=== PATIENT | male | born 1955 | race American Indian/Alaskan Native ===

== ENCOUNTER 2020-09-19 14:55 | Inpatient (IN) | payer SELFPAY ==
--- NOTE | 2020-09-19 16:20 | XRay Report ---
CHEST 2 VIEWS INDICATION: shortness of breath, cough. COMPARISON: None FINDINGS: Support devices: None. Heart: Within normal limits. Lungs: Diffuse coarse bronchovascular markings are present. Pleura: No significant pleural effusion. No pneumothorax. Additional findings: None. IMPRESSION: 1. Diffuse pulmonary process, inflammatory process should be considered Signer Name: Edgardo Schultz MD Signed: 09/19/2020 4:15 PM Workstation Name: [id number]
[2020-09-19 16:59] LABS: Basophils % (Auto) 0.6 % (0.0-1.8); Eosinophils % (Auto) 0.6 % (0.0-4.3); Hematocrit 42.5 % (35.5-45.6); Hemoglobin 14.7 gm/dl (11.8-15.2); Lymphocytes # (Auto) 1.5 K/mm3 (1.2-5.4); Lymphocytes % (Auto) 22.4 % (13.4-35.0); Mean Corpuscular HGB Conc 35 % (32-34); Mean Corpuscular Volume 88 fl (84-94); Monocytes # (Auto) 0.5 K/mm3 (0.0-0.8); Monocytes % (Auto) 7.9 % (0.0-7.3); Platelet Count 559 K/mm3 (140-440); Red Blood Count 4.85 M/mm3 (3.65-5.03); Red Cell Distribution Width 13.8 % (13.2-15.2)
[2020-09-19 17:22] LABS: Alanine Aminotransferase 41 units/L (7-56); Albumin 3.6 g/dL (3.9-5); BUN/Creatinine Ratio 14; Blood Urea Nitrogen 14 mg/dL (9-20); Calcium 9.5 mg/dL (8.4-10.2); Hemolysis Index 4
[2020-09-19] MEDS ORDERED: IPRATROPIUM/ALBUTEROL SULFATE 3 ML AMPUL.NEB IH ONE (22:05)
[2020-09-19] MEDS ORDERED: predniSONE 20 MG TAB PO ONE (22:05)
[2020-09-19] MEDS ORDERED: levoFLOXacin 750 MG TAB PO ONE (22:05)
--- NOTE | 2020-09-19 22:28 | Emergency Department Report ---
- General Chief Complaint: Upper Respiratory Infection Stated Complaint: HEADACHE Source: patient Mode of arrival: Ambulatory Limitations: No Limitations - History of Present Illness Initial Comments: Patient is a 64-year-old male with no past medical history presents to the ED with complaint of acute onset persistent nasal and sinus congestion, frontal sinus pressure, headache, diffuse body aches and pains, persistent dry cough with wheezing and shortness of breath for the last 4 days. Patient states that he has been taking wmnj-xyq-dvevpsj medications with no relief. Patient states that his symptoms got worse in the last 2 days, with fever and chills and therefore he decided to come to the ED for further evaluation. Patient denies dizziness, syncope, chest pain, abdominal pain, fever, chills, nausea and vomiting, diarrhea, sore throat, back pain, dysuria, urinary frequency and urg ency and testicular pain. MD Complaint: cough, sore throat, rhinorrhea, nasal congestion, sinus pain -: Sudden, days(s) (3) Severity: severe Severity scale (0 -10): 4 Quality: sharp, aching Consistency: constant Improves With: nothing Worsens With: nothing Associated Symptoms: denies other symptoms, fever, chills, myalgias, headache, rhinorrhea, nasal congestion, cough. denies: chest pain, shortness of breath, abdominal pain, nausea, vomiting, diarrhea, dysuria, rash, confusion, right sweats, weight loss, epistaxis, hoarseness, ear pain, other Treatments Prior to Arrival: Acetaminophen - Related Data Previous Rx's Medication Instructions Recorded Last Taken Type Albuterol Sulfate [Proventil Hfa] 1 - 2 puff IH Q4H PRN #1 hfa.aer.ad 09/19/20 Unknown Rx Benzonatate [Tessalon Perles] 100 mg PO Q8HR #30 capsule 09/19/20 Unknown Rx Ibuprofen [Motrin] 600 mg PO Q8H PRN #24 tablet 09/19/20 Unknown Rx Prednisone [predniSONE 10 mg 10 mg PO .TAPER #21 tab.ds.pk 09/19/20 Unknown Rx (6-Day Pack, 21 Tabs)] levoFLOXacin [Levaquin TAB] 500 mg PO QDAY #10 tablet 09/19/20 Unknown Rx ED Review of Systems ROS: Stated complaint: HEADACHE Other details as noted in HPI Constitutional: denies: chills, fever Eyes: denies: eye pain, eye discharge, vision change ENT: congestion. denies: ear pain, throat pain Respiratory: cough, shortness of breath, wheezing Cardiovascular: denies: chest pain, palpitations Endocrine: no symptoms reported Gastrointestinal: denies: abdominal pain, nausea, diarrhea Genitourinary: denies: urgency, dysuria Musculoskeletal: back pain, arthralgia, myalgia. denies: joint swelling Skin: denies: rash, lesions Neurological: denies: headache, weakness, paresthesias Psychiatric: denies: anxiety, depression Hematological/Lymphatic: denies: easy bleeding, easy bruising ED Past Medical Hx - Past Medical History Previous Medical History?: No - Medications Home Medications: Home Medications Medication Instructions Recorded Confirmed Last Taken Type Albuterol Sulfate [Proventil Hfa] 1 - 2 puff IH Q4H PRN #1 hfa.aer.ad 09/19/20 Unknown Rx Benzonatate [Tessalon Perles] 100 mg PO Q8HR #30 capsule 09/19/20 Unknown Rx Ibuprofen [Motrin] 600 mg PO Q8H PRN #24 tablet 09/19/20 Unknown Rx Prednisone [predniSONE 10 mg 10 mg PO .TAPER #21 tab.ds.pk 09/19/20 Unknown Rx (6-Day Pack, 21 Tabs)] levoFLOXacin [Levaquin TAB] 500 mg PO QDAY #10 tablet 09/19/20 Unknown Rx ED Physical Exam - General Limitations: No Limitations General appearance: alert, in no apparent distress - Head Head exam: Present: atraumatic, normocephalic, normal inspection - Eye Eye exam: Present: normal appearance, PERRL, EOMI Pupils: Present: normal accommodation - ENT ENT exam: Present: normal orophraynx, mucous membranes moist, TM's normal bilaterally, normal external ear exam, other (Grossly congested nasal passages) - Neck Neck exam: Present: normal inspection, full ROM - Respiratory Respiratory exam: Present: wheezes (Diffuse coarse wheezes throughout, worse in the lower lobes bilaterally), rhonchi (Bilateral lower lobe rhonchi). Absent: respiratory distress, chest wall tenderness, accessory muscle use - Cardiovascular Cardiovascular Exam: Present: regular rate, normal rhythm, normal heart sounds. Absent: systolic murmur, diastolic murmur, rubs, gallop - GI/Abdominal GI/Abdominal exam: Present: soft, normal bowel sounds. Absent: tenderness, guarding, rebound, hyperactive bowel sounds, hypoactive bowel sounds, organomegaly, mass - Extremities Exam Extremities exam: Present: normal inspection, full ROM, normal capillary refill - Back Exam Back exam: Present: normal inspection, full ROM. Absent: tenderness, CVA tenderness (R), CVA tenderness (L), muscle spasm, paraspinal tenderness, vertebral tenderness - Neurological Exam Neurological exam: Present: alert, oriented X3, CN II-XII intact, normal gait, reflexes normal - Psychiatric Psychiatric exam: Present: normal affect, normal mood - Skin Skin exam: Present: warm, dry, intact, normal color. Absent: rash ED Course Vital Signs 09/19/20 09/19/20 15:30 23:16 Temperature 98.1 F Pulse Rate 88 Pulse Rate [ 80 Bilateral Throughout] Respiratory 18 Rate Respiratory 20 Rate [Bilateral Throughout] Blood Pressure 175/86 [Right] O2 Sat by Pulse 92 Oximetry ED Medical Decision Making - Lab Data Result diagrams: 09/19/20 16:36 09/19/20 16:36 - Radiology Data Radiology results: report reviewed, image reviewed Findings [facility] [address] [place] [address] XRay Report Signed Patient: CAROLYNE LEAHY#: [id number] : 1955 Acct:[id number] Age/Sex: 64 / M ADM Date: 09/19/20 Loc: ED Attending Dr: Ordering Physician: TERESA MAC Date of Service: 09/19/20 Procedure(s): XR chest routine 2V Accession Number(s): [id number] cc: TERESA MAC Fluoro Time In Minutes: CHEST 2 VIEWS INDICATION: shortness of breath, cough. COMPARISON: None FINDINGS: Support devices: None. Heart: Within normal limits. Lungs: Diffuse coarse bronchovascular markings are present. Pleura: No significant pleural effusion. No pneumothorax. Additional findings: None. IMPRESSION: 1. Diffuse pulmonary process, inflammatory process should be considered Signer Name: Edgardo Schultz MD Signed: 09/19/2020 4:15 PM Workstation Name: [id number] Transcribed By: SHAKEEL Dictated By: Edgardo Schultz MD Electronically Authenticated By: Edgardo Schultz MD Signed Date/Time: 09/19/201614 DD/ 14 TD/TT: - Medical Decision Making This is a 64-year-old male with no past medical history presents to the ED with complaint of acute onset persistent nasal and sinus congestion, frontal sinus pressure, headache, diffuse body aches and pains, persistent dry cough wi th wheezing and shortness of breath for the last 4 days. Patient states that he has been taking obvo-apw-yatlioe medications with no relief. Patient states that his symptoms got worse in the last 2 days, with fever and chills and therefore he decided to come to the ED for further evaluation. In the ED, patient is alert and oriented x3 and is not in distress. Patient was treated in the ED with DuoNeb and oral prednisone. Lab test results were reviewed and are all nonactionable. Chest x-ray shows diffuse coarse bronchovascular markings are present, inflammatory process should be considered. On reevaluation, patient's oxygen saturation before nebulizer treatment was ranging between 92% t o 94% in room air. The oxygen saturation on ambulation after the nebulizer treatment did not improve but got worse, ranging from 87% to 89% in room air. This findings were discussed with the ED attending physician Dr. Yost who agreed the plan of care to admit the patient to the hospital. Patient was therefore admitted to the hospital for further evaluation, and Covid-19 order set activated. I therefore paged and discussed the patient's case with the hospitalist physician on-call Dr. Pierre who admitted the patient to the hospital. - Differential Diagnosis Hypoxia; Pneumonia; Bronchitis; Asthma; URI; Covid-19 Critical care attestation.: If time is entered above; I have spent that time in minutes in the direct care of this critically ill patient, excluding procedure time. ED Disposition Clinical Impression: Community acquired bacterial pneumonia, Shortness of breath, Acute respiratory failure with hypoxia, Pneumonia due to severe acute respiratory syndrome coronavirus 2 (SARS-CoV-2) Disposition: 09 OP ADMIT IP TO THIS HOSP Is pt being admited?: Yes Does the pt Need Aspirin: Yes Condition: Stable Instructions: Shortness of Breath, Adult, [id number], Upper Respiratory Infection, Adult, Wdnl-bu-[id number], Community-Acquired Pneumonia, Adult, Herw-gs-Etre, Acute Bronchitis (ED), Bacterial Pneumonia (ED) Additional Instructions: [place] radiografa de trax muestra que puede estar teniendo algn proceso inflamatorio o infeccin en rob[place]o pulmn. Por lo tanto, tome la medicacin con alimentos, araceli muchos lquidos y kerri un seguimiento con robledo mdico de atencin primaria en 3 a 5 hawley para tara reevaluacin. Regrese al servicio de urgencias inmediatamente si los sntomas empeoran. Prescriptions: levoFLOXacin [Levaquin TAB] 500 mg PO QDAY #10 tablet Ibuprofen [Motrin] 600 mg PO Q8H PRN #24 tablet PRN Reason: Pain Prednisone [predniSONE 10 mg (6-Day Pack, 21 Tabs)] 10 mg PO .TAPER #21 tab.ds.pk Albuterol Sulfate [Proventil Hfa] 1 - 2 puff IH Q4H PRN #1 hfa.aer.ad PRN Reason: Shortness Of Breath Benzonatate [Tessalon Perles] 100 mg PO Q8HR #30 capsule Referrals: CAIO TOLENTINO MD [Staff Physician] - 3-5 Days Time of Disposition: 22:48 Print Language: UZBEK
[2020-09-20] MEDS ORDERED: ASPIRIN 81 MG TAB CHEW PO ONE (00:31)
[2020-09-20] MEDS ORDERED: ACETAMINOPHEN 325 MG TAB PO PRN ×2 (00:32→03:56)
[2020-09-20] MEDS ORDERED: ALBUTEROL 2.5 MG/3 ML NEBU IH PRN (00:32)
[2020-09-20] MEDS ORDERED: ONDANSETRON 4 MG/2 ML INJ IV PRN ×2 (00:32→03:56)
[2020-09-20 02:45] LABS: C-Reactive Protein 3.7 mg/dL (0.00-1.30)
--- NOTE | 2020-09-20 03:49 | History and Physical Report ---
History of Present Illness Date of examination: 09/20/20 Date of admission: 09/20/2020 Chief complaint: Shortness of breath History of present illness: 64-year-old male with no significant past medical history comes in for sinus congestion headache diffuse body aches and pains, persistent dry cough and wheezing and shortness of breath for the last 4 days. Patient has been taking trhl-wir-kjdglqj medications with no relief. Patient states that the symptoms got worse over the last 2 days with fever and chills and therefore he decided to come to the emergency room for further evaluation. Patient denies dizziness syncope chest pain abdominal pain. Denies any exposure to coronavirus. Patient has been taking albuterol and Tessalon Perles and prednisone 6-day pack and Levaquin. Review of Systems ROS: Stated complaint: HEADACHE Other details as noted in HPI Constitutional: denies: chills, fever Eyes: denies: eye pain, eye discharge, vision change ENT: congestion. denies: ear pain, throat pain Respiratory: cough, shortness of breath, wheezing Cardiovascular: denies: chest pain, palpitations Endocrine: no symptoms reported Gastrointestinal: denies: abdominal pain, nausea, diarrhea Genitourinary: denies: urgency, dysuria Musculoskeletal: back pain, arthralgia, myalgia. denies: joint swelling Skin: denies: rash, lesions Neurological: denies: headache, weakness, paresthesias Psychiatric: denies: anxiety, depression Hematological/Lymphatic: denies: easy bleeding, easy bruising Past History Past Medical History: No medical history Past Surgical History: No surgical history Social history: lives with family, full code Family history: hypertension Medications and Allergies Home Medications Medication Instructions Recorded Confirmed Last Taken Type Albuterol Sulfate [Proventil Hfa] 1 - 2 puff IH Q4H PRN #1 hfa.aer.ad 09/19/20 Unknown Rx Benzonatate [Tessalon Perles] 100 mg PO Q8HR #30 capsule 09/19/20 Unknown Rx Ibuprofen [Motrin] 600 mg PO Q8H PRN #24 tablet 09/19/20 Unknown Rx Prednisone [predniSONE 10 mg 10 mg PO .TAPER #21 tab.ds.pk 09/19/20 Unknown Rx (6-Day Pack, 21 Tabs)] levoFLOXacin [Levaquin TAB] 500 mg PO QDAY #10 tablet 09/19/20 Unknown Rx Active Meds: Active Medications Acetaminophen (Acetaminophen 325 Mg Tab) 650 mg PO Q4H PRN PRN Reason: Pain MILD(1-3)/Fever >100.5/HENNING Albuterol (Albuterol 2.5 Mg/3 Ml Nebu) 2.5 mg IH Q3HRT PRN PRN Reason: Shortness Of Breath Sodium Chloride (Nacl 0.45% 1000 Ml) 1,000 mls @ 125 mls/hr IV DIRECT BRITTANY Ondansetron HCl (Ondansetron 4 Mg/2 Ml Inj) 4 mg IV Q8H PRN PRN Reason: Nausea And Vomiting Sodium Chloride (Sodium Chloride 0.9% 10 Ml Flush Syringe) 10 ml IV BID BRITTANY Sodium Chloride (Sodium Chloride 0.9% 10 Ml Flush Syringe) 10 ml IV PRN PRN PRN Reason: LINE FLUSH Exam - Constitutional Vitals: Temp Pulse Resp BP Pulse Ox 98.1 F 80 20 175/86 92 09/19/20 15:30 09/19/20 23:16 09/19/20 23:16 09/19/20 15:30 09/19/20 15:30 General appearance: Present: mild distress, well-nourished - EENT Eyes: Present: PERRL ENT: hearing intact, clear oral mucosa - Neck Neck: Present: supple, normal ROM - Respiratory Respiratory effort: normal Respiratory: bilateral: CTA, rhonchi, wheezing - Cardiovascular Heart rate: 98 Rhythm: regular Heart Sounds: Present: S1 & S2. Absent: rub, click - Extremities Extremities: no ischemia, pulses symmetrical, No edema Peripheral Pulses: within normal limits - Abdominal General gastrointestinal: Present: soft, non-tender, non-distended, normal bowel sounds Male genitourinary: Present: normal - Rectal Rectal Exam: deferred - Integumentary Integumentary: Present: clear, warm, dry - Musculoskeletal Musculoskeletal: gait normal, strength equal bilaterally - Psychiatric Psychiatric: appropriate mood/affect, intact judgment & insight - Neurologic Neurologic: CNII-XII intact, moves all extremities - Allied Health Allied health notes reviewed: nursing, case management HEART Score - HEART Score Troponin: Troponin T < 0.010 ng/mL (0.00-0.029) 09/19/20 23:46 Results - Labs CBC & Chem 7: 09/19/20 16:36 09/19/20 23:46 Labs: Laboratory Last Values WBC 6.6 K/mm3 (4.5-11.0) 09/19/20 16:36 RBC 4.85 M/mm3 (3.65-5.03) 09/19/20 16:36 Hgb 14.7 gm/dl (11.8-15.2) 09/19/20 16:36 Hct 42.5 % (35.5-45.6) 09/19/20 16:36 MCV 88 fl (84-94) 09/19/20 16:36 MCH 30 pg (28-32) 09/19/20 16:36 MCHC 35 % (32-34) H 09/19/20 16:36 RDW 13.8 % (13.2-15.2) 09/19/20 16:36 Plt Count 559 K/mm3 (140-440) H 09/19/20 16:36 Lymph % (Auto) 22.4 % (13.4-35.0) 09/19/20 16:36 [place] % (Auto) 7.9 % (0.0-7.3) H 09/19/20 16:36 Eos % (Auto) 0.6 % (0.0-4.3) 09/19/20 16:36 Baso % (Auto) 0.6 % (0.0-1.8) 09/19/20 16:36 Lymph # (Auto) 1.5 K/mm3 (1.2-5.4) 09/19/20 16:36 [place] # (Auto) 0.5 K/mm3 (0.0-0.8) 09/19/20 16:36 Eos # (Auto) 0.0 K/mm3 (0.0-0.4) 09/19/20 16:36 Baso # (Auto) 0.0 K/mm3 (0.0-0.1) 09/19/20 16:36 Seg Neutrophils % 68.5 % (40.0-70.0) 09/19/20 16:36 Seg Neutrophils # 4.6 K/mm3 (1.8-7.7) 09/19/20 16:36 D-Dimer 516.02 ng/mlDDU (0-234) H 09/19/20 23:46 Sodium 139 mmol/L (137-145) 09/19/20 16:36 Potassium 5.1 mmol/L (3.6-5.0) H 09/19/20 16:36 Chloride 103.0 mmol/L (98-107) 09/19/20 16:36 Carbon Dioxide 23 mmol/L (22-30) 09/19/20 16:36 Anion Gap 18 mmol/L 09/19/20 16:36 BUN 14 mg/dL (9-20) 09/19/20 16:36 Creatinine 1.0 mg/dL (0.8-1.3) 09/19/20 16:36 Estimated GFR > 60 ml/min 09/19/20 16:36 BUN/Creatinine Ratio 14 % 09/19/20 16:36 Glucose 126 mg/dL (75-100) H 09/19/20 23:46 Calcium 9.5 mg/dL (8.4-10.2) 09/19/20 16:36 Ferritin 353.8 ng/mL (30.0-300.0) H 09/19/20 23:46 Total Bilirubin 0.20 mg/dL (0.1-1.2) 09/19/20 16:36 AST 25 units/L (5-40) 09/19/20 16:36 ALT 41 units/L (7-56) 09/19/20 16:36 Alkaline Phosphatase 68 units/L (35-129) 09/19/20 16:36 Lactate Dehydrogenase 215 units/L (91-180) H 09/19/20 23:46 Troponin T < 0.010 ng/mL (0.00-0.029) 09/19/20 23:46 C-Reactive Protein 3.70 mg/dL (0.00-1.30) H 09/19/20 23:46 NT-Pro-B Natriuret Pep 135.6 pg/mL (0-900) 09/19/20 16:36 Total Protein 7.7 g/dL (6.3-8.2) 09/19/20 16:36 Albumin 3.6 g/dL (3.9-5) L 09/19/20 16:36 Albumin/Globulin Ratio 0.9 % 09/19/20 16:36 - Imaging and Cardiology Chest x-ray: report reviewed Imaging and Cardiology: Chest x-ray Lungs: Diffuse coarse bronchovascular markings are present. Pleura: No significant pleural effusion. No pneumothorax. Additional findings: None. IMPRESSION: 1. Diffuse pulmonary process, inflammatory process should be considered Assessment and Plan Advance Directives: Yes (Full code) VTE prophylaxis?: Chemical Plan of care discussed with patient/family: Yes - Patient Problems (1) Acute respiratory failure with hypoxia Current Visit: Yes Status: Acute Plan to address problem: Patient is desaturating to 80s on ambulation. On room air patient oxygen is around 92. Oxygen supplements as necessary. (2) Bilateral pneumonia Current Visit: Yes Status: Acute Qualifiers: Pneumonia type: due to unspecified organism Plan to address problem: Patient initiated on IV ceftriaxone and azithromycin. For possible community- acquired pneumonia Sputum cultures (3) Person under investigation for COVID-19 Current Visit: Yes Status: Acute Plan to address problem: Coronavirus PCR and inflammatory markers. Oxygen supplements as necessary. Decadron 8 mg IV every 24. ID consult if coronavirus PCR is positive today (4) DVT prophylaxis Current Visit: Yes Status: Acute Plan to address problem: On Lovenox 40 mg subcu daily and GI prophylaxis
[2020-09-20] MEDS ORDERED: HYDROmorphone 1 MG/1 ML INJ IV PRN (03:56)
[2020-09-20] MEDS ORDERED: oxyCODONE /ACETAMINOPHEN 5-325MG TAB PO PRN (03:56)
[2020-09-20] MEDS ORDERED: dexAMETHasone 4 MG/ML VIAL IV SCH (06:00)
[2020-09-20] MEDS: dexAMETHasone 4 MG/ML VIAL IV SCH (09:51)
[2020-09-20] MEDS: AZITHROMYCIN 500 MG in SODIUM CHLORIDE 0.9% 250ML 250 ML IV SCH (09:52)
[2020-09-20] MEDS: cefTRIAXone/NS 2 GM/100 ML 2 GM/100 ML BAG IV SCH (09:52)
[2020-09-20] MEDS: FAMOTIDINE 20 MG TAB PO SCH ×2 (09:52→21:26)
--- NOTE | 2020-09-20 11:43 | Event Note ---
Date: 09/20/20 64-year-old speaking male here with flulike symptoms the past few days. Symptoms fail to improve proved so patient decided to come to the hospital. Chest x-ray performed showed diffuse coarse bronchovascular markings. COVID-19 test currently pending. Patient is on steroids and antibiotics Plan Await COVID-19 test Walk test Rest of information in HPI below.
[2020-09-20] MEDS: CHOLECALCIFEROL (VIT D3) 5,000 UNIT TAB PO SCH (12:00)
[2020-09-20] MEDS: SODIUM CHLORIDE 0.45% 1000 ML 1,000 ML IV SCH (21:27)
[2020-09-20] MEDS ORDERED: ENOXAPARIN 40 MG/0.4 ML INJ SUB-Q SCH (22:00)
[2020-09-21] MEDS: dexAMETHasone 4 MG/ML VIAL IV SCH (09:17)
[2020-09-21] MEDS: SODIUM CHLORIDE 0.45% 1000 ML 1,000 ML IV SCH (09:18)
[2020-09-21] MEDS: FAMOTIDINE 20 MG TAB PO SCH (09:18)
[2020-09-21] MEDS: cefTRIAXone/NS 2 GM/100 ML 2 GM/100 ML BAG IV SCH (09:18)
[2020-09-21] MEDS: CHOLECALCIFEROL (VIT D3) 5,000 UNIT TAB PO SCH (09:18)
[2020-09-21] MEDS: AZITHROMYCIN 500 MG in SODIUM CHLORIDE 0.9% 250ML 250 ML IV SCH (09:26)
[2020-09-21 09:36] LABS: Basophils % (Auto) 0.1 % (0.0-1.8); Hematocrit 38.4 % (35.5-45.6); Hemoglobin 13.2 gm/dl (11.8-15.2); Lymphocytes # (Auto) 1.6 K/mm3 (1.2-5.4); Lymphocytes % (Auto) 14.8 % (13.4-35.0); Mean Corpuscular HGB Conc 34 % (32-34); Mean Corpuscular Volume 88 fl (84-94); Monocytes # (Auto) 0.8 K/mm3 (0.0-0.8); Monocytes % (Auto) 7.3 % (0.0-7.3); Platelet Count 625 K/mm3 (140-440); Red Blood Count 4.36 M/mm3 (3.65-5.03)
[2020-09-21 09:50] LABS: Alanine Aminotransferase 33 units/L (7-56); Albumin 3.3 g/dL (3.9-5); BUN/Creatinine Ratio 30; Blood Urea Nitrogen 30 mg/dL (9-20); Calcium 8.6 mg/dL (8.4-10.2); Hemolysis Index 6
[2020-09-21 12:49] VITALS: BP 128/71
--- NOTE | 2020-09-21 13:14 | Discharge Summary ---
Providers - Providers Date of Admission: 09/20/20 00:32 Date of discharge: 09/21/20 Attending physician: ALYSSIA DUNN 09/21/20 08:05 Consult to Physician [CONS] Routine Comment: Consulting Provider: SUSANNA GODFREY Physician Instructions: Reason For Exam: COVID-19 pna Primary care physician: TECHNICAL SERVICE SPECIALIST Hospitalization Condition: Stable Hospital course: 64-year-old male with no significant past medical history comes in for sinus congestion headache diffuse body aches and pains, persistent dry cough and wheezing and shortness of breath for the last 4 days. Patient has been taking rwyr-gbm-ritkodt medications with no relief. Patient states that the symptoms got worse over the last 2 days with fever and chills and therefore he decided to come to the emergency room for further evaluation. Patient denies dizziness syncope chest pain abdominal pain. Denies any exposure to coronavirus. Patient has been taking albuterol and Tessalon Perles and prednisone 6-day pack and Levaquin. Here in the ER, patient was admitted to rule out COVID-19. He had an x-ray performed showed no clear pneumonia. He was started on steroids and antibiotics for possible COVID-19. His COVID-19 came out positive. Patient is able to ambulate and has no hypoxia. He will be discharged on steroids and antibiotics. He feels great and denies any chest pain or shortness of breath. He will be discharged home today. Disposition: DC-01 TO HOME OR SELFCARE Time spent for discharge: 35 minutes - Discharge Diagnoses (1) Acute respiratory failure with hypoxia Status: Acute (2) Community acquired bacterial pneumonia Status: Acute (3) Pneumonia due to COVID-19 virus Status: Acute Core Measure Documentation - Palliative Care Palliative Care/ Comfort Measures: Not Applicable - Core Measures Any of the following diagnoses?: none Exam - Constitutional Vitals: Temp Pulse Resp BP Pulse Ox 98.1 F 95 H 20 128/71 92 09/21/20 12:36 09/21/20 12:36 09/21/20 12:36 09/21/20 12:36 09/21/20 12:36 General appearance: Present: no acute distress, well-nourished - EENT Eyes: Present: PERRL ENT: hearing intact, clear oral mucosa - Neck Neck: Present: supple, normal ROM - Respiratory Respiratory effort: normal Respiratory: bilateral: CTA - Cardiovascular Heart Sounds: Present: S1 & S2. Absent: rub, click - Extremities Extremities: pulses symmetrical, No edema Peripheral Pulses: within normal limits - Abdominal General gastrointestinal: Present: soft, non-tender, non-distended, normal bowel sounds Male genitourinary: Present: normal - Integumentary Integumentary: Present: clear, warm, dry - Musculoskeletal Musculoskeletal: gait normal, strength equal bilaterally - Psychiatric Psychiatric: appropriate mood/affect, intact judgment & insight - Neurologic Neurologic: CNII-XII intact, moves all extremities Plan Additional Instructions: Continue Cefpodoxime and azithromycin as prescribed. Continue dexamethasone for 9 more days. Continue Eliquis for 7 days. Self quarantine for 2 weeks. Follow-up with PCP in 2 weeks. Return to the ER if symptoms get worse. Follow up with: CAIO TOLENTINO MD [Staff Physician] - 3-5 Days Prescriptions: Cefpodoxime Proxetil 200 mg PO Q12H #14 tablet Dexamethasone 6 mg PO DAILY #9 tablet Apixaban [Eliquis] 2.5 mg PO BID #14 tablet Albuterol Sulfate [Proventil Hfa] 1 - 2 puff IH Q4H PRN #1 hfa.aer.ad PRN Reason: Shortness Of Breath Benzonatate [Tessalon Perles] 100 mg PO Q8HR #30 capsule Azithromycin [Zithromax TAB] 250 mg PO QDAY #4 tablet
== END 2020-09-21 15:37 | disposition home or self-care (01) | DRG 177 ==
LOC: ED 14:55 → 3A 09-20 00:32
PROVIDERS: ADMIT Internal Medicine; ATTEND Internal Medicine
DX: U07.1 COVID-19 (principal); J96.01 Acute respiratory failure with hypoxia; J12.89 Other viral pneumonia; Z82.49 Family history of ischemic heart disease and other diseases of the circulatory system; Z79.899 Other long term (current) drug therapy
CPT/HCPCS: 36415; 71046; 80053; 82728; 82947; 83036; 83615; 83880; 84145; 84484; 85025; 85379; 86140; 94644; G0378; J0456; J0696; J1100; J1650; J7030; J7050; J7512; U0003